=== PATIENT | female | born 2005 | race Caucasian/White ===

== ENCOUNTER 2025-01-16 11:03 | Emergency (ER) | payer OTHER, SELFPAY ==
[2025-01-16 11:18] VITALS: BP 123/87; PULSE 96; RESP 18; TEMP 36.4; O2SAT 100
--- NOTE | 2025-01-16 11:23 | ED_ITS ---
HPI - Eye Problem General Chief complaint: Eye Problems Stated complaint: left eye swollen patient presents to the [facility] with complaints of he waking up with left eye upper and lower lid swelling with mild redness and tenderness. Noted she has had nasal congestion, cold-like symptoms, sore throat, tonsil stones, and cough for the last 7-8 days. He reports he was evaluated at another urgent care and tested negative for strep, flu, and COVID. Using allergy and cold medications with some relief of symptoms. Denies fever, chills, body aches, redness to eye, irritation to eye, headache, dizziness, ear pain. Related Data Home Medications ?Medication ?Instructions ?Recorded ?Confirmed ?Last Taken ?Type cetirizine 10 mg tablet (Aller-Nik) 5 mg PO DAILY maria luz rgy 01/16/25 01/16/25 Unknown History medroxyprogesterone 150 mg/mL mg IM 01/16/25 Unknown History intramuscular syringe sertraline 100 mg tablet mg 01/16/25 Unknown History Allergies Allergy/AdvReac Type Severity Reaction Status Date / Time No Known Allergies Allergy Verified 01/16/25 11:22 Review of Systems Constitutional: Constitutional: Reports as per HPI, Denies chills, Denies fatigue, Denies fever(s) and Denies weakness Eyes: Eyes: Reports as per HPI, Denies no additional eye complaints, Denies change in vision and Denies photophobia Comments: swelling, redness, pain to left eye ENT: Reports as per HPI, Denies vertigo, Denies dizziness, Reports nasal congestion and Reports sore throat Cardiovascular: Cardiovascular: Reports no additional cardiovascular complaints Respiratory: Respiratory: Reports as per HPI, Reports chest congestion, Reports cough, Denies dyspnea and Denies wheezing Gastrointestinal: Gastrointestinal: Reports no additional gastrointestinal complaints Genitourinary: Genitourinary: Reports no additional female genitourinary complaints Musculoskeletal: Musculoskeletal: Reports no additional musculoskeletal complaints Integumentary/Breasts: Skin/Breast: Reports as per HPI, Reports erythema and Denies rash Neurologic: Reports as per HPI, Denies vertigo, Denies dizziness, Reports headache(s), Denies numbness and Denies weakness Psychiatric: Psychiatric: Reports no additional psychiatric complaints Endocrine: Endocrine: Reports no additional endocrine complaints Hematologic/Lymphatic: Hematologic/Lymphatic: Reports no additional hematologic/lymphatic complaints Allergic/Immunologic: Allergic/Immunologic: Reports as per HPI Comments: seasonal allergies Exam Const: General: healthy appearing and no acute distress Nutritional Appearance: well nourished Orientation/consciousness: patient oriented x3 Limitations: no limitations HENMT: Head: normal to inspection Ears: external ears normal and TM's normal bilaterally Face/Nose/Sinus: Normal external nose present, Normal nares present and Nasal discharge present Face and sinus: normal facial exam and sinuses nontender Mouth: Yes Normal oral and palatal mucosa present, Yes lip normal and Yes moist mucous membranes Throat: posterior oropharynx abnormal ( Moderate erythema with edema and exudate) Eyes: Conjunctivae: conjunctivae normal Pupils: Equal, round and reactive pupils present EOM: EOMs intact bilaterally Direct Ophthalmoscopy: no photophobia Other: diffuse edema, erythema left upper lower eyelid. No open wound, drainage, crusting or exudate. Tenderness and warmth with palpation Neck: Neck: normal visual inspection and lymphadenopathy (bilateral anterior cervical ) Resp: Effort & Inspection: normal respiratory effort Auscultation: clear to auscultation bilaterally Cardio: Rate: regular rate Rhythm: regular rhythm Skin: General skin exam: No normal color Rashes: no rashes Wounds: no wo unds Other: diffuse erythema over right upper and lower eyelid Neuro: General: patient oriented x3, moves all extremities, no meningeal signs, no focal motor deficits and CN's II-XI intact bilaterally Cranial nerves: Yes Nystagmus not present Speech: normal speech Gait exam (Neuro): Normal gait present Extrem: General: normal to inspection, no clubbing, cyanosis or edema and no pedal edema Psych: Mental Status: mental status grossly normal Affect: normal affect Attitude: cooperative Course Course Level of Care: Express Care Visit Vital Signs Vital signs: Vital Signs Temperature 97.5 F L 01/16/25 11:18 Pulse Rate 96 01/16/25 11:18 Respiratory Rate 18 01/16/25 11:18 Blood Pressure 123/87 01/16/25 11:18 Pulse Oximetry 100 01/16/25 11:18 Temperature 97.5 F L 01/16/25 11:18 Pulse Rate 96 01/16/25 11:18 Respiratory Rate 18 01/16/25 11:18 Blood Pressure 123/87 01/16/25 11:18 Pulse Oximetry 100 01/16/25 11:18 MDM - Eye Problem MDM Narrative Medical decision making narrative: tenderness, erythema over the eyelid. one week of cold like symptoms. The patient was evaluated by myself in the [facility]. History is obtained from patient who is an independent historian and physical exam was performed. Available medical records were reviewed at this time. Exam findings show no acute concerns or changes; patient is non-toxic appearing and is in no distress. Patient is appropriate for outpatient treatment and follow-up. I have evaluated and discussed social determinants of health with the patient that could potentially impact subsequent diagnosis and treatment plans. Differential diagnosis and treatment plan were discussed with the patient. Patient agrees with discussion and after shared medical decision making agrees with plan of care. All questions were answered to the patient's satisfaction. Differential Diagnosis Differential diagnosis: Likely conjunctivitis, periorbital cellulitis, subconjunctival hemorrhage, corneal ulcer and ruptured globe Medical Records Attestation: I reviewed the patient's medical records. Discharge Plan Discharge Clinical Impression: Localized edema, Sinusitis Patient Disposition: Home Condition: Stable Instructions: Antibiotic Form, Sinusitis (ED), Cold Compress or Soak (ED) Patient Language: [place] Zeal[place] Prescriptions: New cephalexin 500 mg capsule 500 mg PO Q12H Qty: 20 0RF methylprednisolone [Medrol (Fredo)] 4 mg tablets,dose pack See Rx Instructions .ROUTE .COMPLEX Qty: 21 0RF Rx Instructions: for 6 days No Action sertraline 100 mg tablet medroxyprogesterone 150 mg/mL syringe IM cetirizine [Aller-Nik] 10 mg tablet 5 mg PO DAILY Follow-up/Referrals: UNKNOWN,DOCTOR [Primary Care Provider] Time of Disposition: 11:30
== END 2025-01-16 11:40 | disposition home or self-care (01) ==
PROVIDERS: Emergency Provider Nurse Practitioner Family
DX: H02.844 Edema of left upper eyelid (principal); H02.845 Edema of left lower eyelid; J32.9 Chronic sinusitis, unspecified
CPT/HCPCS: 99213; G0463